=== PATIENT | male | born 1985 | race Caucasian/White ===

== ENCOUNTER 2017-04-05 02:42 | Emergency (ER) | payer MEDICARE ==
[~2017-04-05] VITALS: Ht 185.4 cm; Wt 118.2 kg
[~2017-04-05 02:42] MED LIST: CITA20TA PO; ESCI10TA3 PO; HYDR50CA PO; HYOS-22 PO; TRAZ-115 PO
[2017-04-05 02:54] VITALS: BP 135/89; PULSE 86; RESP 16; O2SAT 95
--- NOTE | 2017-04-05 02:55 | ED.REPORT ---
HPI-General Illness Date of Service Apr 05, 2017 ED Provider: 31-year-old male with past medical history of bipolar disorder, PTSD, substance abuse in recovery comes in today with a rash. He states that this rash has developed over the last couple of weeks he believes it is due to his current medications that he was prescribed he performed his own trial where he stopped the medication the rash went away, and he initiated his medications and the rash came back. He does not want to continue the medications he was prescribed due to the effect. He is not excessively concerned about the rash, however his main concern today is around which medications he will take until his next psychiatric appointment which is scheduled for April. He has called around to numerous outpatient psych locations and the soonest that he could get for an appointment was this date in April. He states that he has applied to be contacted in case of cancellation, however is unsure if this will occur or if he will be able to get in any sooner than his currently scheduled date. Patient states that he has had psychiatric symptoms including major depression, rage, desired to end his own life without a plan to do so. He states that he is not actively suicidal however, if he is unable to take the appropriate medications he fears that he may come to that point. He denies medical symptomatology at this point. Nursing Notes Stated Complaint: POSS DRUG REACTION/PSYCH EVAL Chief Complaint: Psychiatric Complaint Nursing Notes Reviewed: Yes Allergies: Coded Allergies: lamotrigine (Verified Allergy, Unknown, 04/05/17) oxcarbazepine (Verified Allergy, Unknown, 04/05/17) Scheduled Citalopram-Expunged Drug, Do Not Renew! (Citalopram-Expunged Drug, Do Not Renew! ) 20 Mg Tablet 40 MG PO AM Escitalopram Oxalate (Lexapro) 10 Mg Tablet 20 MG PO DAILY Escitalopram Oxalate (Escitalopram Oxalate) 20 Mg Tablet 20 MG PO DAILY Hyoscyamine (Hyoscyamine) 0.125 Mg Tablet 0.125 MG PO QID Trazodone (Trazodone) 50 Mg Tablet 50 MG PO HS Scheduled PRN Hydroxyzine Pamoate (Vistaril) 50 Mg Capsule 50 MG PO TID PRN PRN For Anxiety General Time Seen by MD: 02:56 Chief Complaint Rash Hx Obtained From: Patient Arrived By: Walk-in Sudden in Onset?: No Symptom Duration: Intermittent Quality: Itching Severity: Current: No pain currently Severity: Maximum: No pain Past Medical History Past Medical History Depression Bipolar PTSD SBOs Chronic back pain Past Surgical History Hernia repair as an infant Family History noncontributory Smoking History Current Every Day Smoker Social History Alcohol Use: Denies alcohol use Drug Use: In recovery Other Social History: Lives in rehab facility, Local resident Ambulatory Status Independent Physical Exam Vital Signs Vital Signs Date Time Temp Pulse Resp B/P Pulse Ox O2 Delivery O2 Flow Rate FiO2 04/05/17 04:59 36.7 82 16 135/89 96 Room Air 04/05/17 02:54 36.9 86 16 135/89 95 Room Air Initial VS: Reviewed, Vital signs normal General/Constitutional: Well-developed, Well-nourished Head / Eyes: Atraumatic, Normocephalic, PERRL ENT: Mucous membranes moist, Conjunctiva normal, No scleral icterus Neck: Supple, Non-tender, Full range of motion Respiratory: Breath sounds normal, Clear to auscultation, No respiratory distress Cardiovascular: Regular rate & rhythm, Heart sounds normal, Intact distal pulses Extremities: Vascular intact, Neuro intact, No swelling, No tenderness Skin: Warm, Dry, No cyanosis Neurologic: Alert, Oriented, Nonfocal Psychiatric: Mood/affect normal, Behavior normal, Normal thought content Interpretation & Diagnostics Lab Results Interpretation Test 04/05/17 03:40 Hold Urine Received (Received) Drug Screen / Level Interp Urine drug screen neg Re-Eval/Medical Decision Med Decision/Clinical Course Patient's concerns for medications causing his rash are certainly warranted. Noting the difficulty of trying to get into a psychiatric outpatient clinic for medication review on short notice it is reasonable to cover the patient with the medication has worked well for him previously. Patient will follow up with ED if adverse reaction occurs with medication prescribed today. Counseled Regarding: Diagnosis, Lab results, Need for follow-up, When/why to return to ED Discharge & Departure Primary Impression: Rash Additional Impressions: Depression Depression Type: major depressive disorder Major depression recurrence: recurrent Major depression episode severity: moderate Anxiety Disposition: Home Discharge Condition All VS Reviewed: Yes Condition: Stable Patient Instructions: Triamcinolone (On the skin) Additional Instructions: A new visit to the ER today we discussed the rash which has developed likely due to medications, as well as medications that you are/have been taking for depression, anxiety and bipolar disorder. It appears that you have need of an appointment to help balance out medication regimen, but there is none available at this time. For this reason we have provided a month of escitalopram which you have stated has worked well for you previously. This should be enough to cover anteriorly to see a health professional who is able to balance your medication regimen and follow-up on a regular basis. Apply triamcinolone to area of rash once a day as needed. Follow-up with psychiatric eval and/or primary care provider as soon as possible. Referrals: NOPCP (PCP) Attending Statement The patient was seen and examined together with Dr. Pepper and I agree with the history, exam and plan as outlined in the note above. Tej Haddad MD Apr 05, 2017 02:55 Giovanni Pepper DO Apr 05, 2017 04:16
[2017-04-05] MEDS ORDERED: ESCI20TA38 PO (04:20)
[2017-04-05] MEDS ORDERED: Triamcinolone 0.1% 30 Gm Cream TOPICAL SCH ×4 (04:30→08:30)
[2017-04-05 04:59] VITALS: BP 135/89; PULSE 82; RESP 16; O2SAT 96
== END 2017-04-05 05:00 | disposition home or self-care (01) ==
LOC: SED 02:42
DX: R21 Rash and other nonspecific skin eruption (principal); F33.1 Major depressive disorder, recurrent, moderate; F41.9 Anxiety disorder, unspecified; F43.10 Post-traumatic stress disorder, unspecified; F17.200 Nicotine dependence, unspecified, uncomplicated; Z88.8 Allergy status to other drugs, medicaments and biological substances